=== PATIENT | female | born 1950 | race Native Hawaiian/Other Pacific Islander ===

== ENCOUNTER 2016-07-09 14:07 | Inpatient (IN) | payer OTHER ==
--- NOTE | 2016-07-09 14:49 | Emergency Department Report ---
Chief Complaint: Neuro Symptoms/Deficit Stated Complaint: SLURRED SPEECH Time Seen by Provider: 07/09/16 14:37 - HPI History of Present Illness: 65-year-old female presents today complaining of slurred speech and dizziness since 7 AM this morning. Positive for history of hypertension and has been out of her medication for over a year. - ROS Review of Systems: Per HPI - Exam Vital Signs: Vital Signs 07/09/16 14:26 Temperature 98.2 F Pulse Rate 102 H Respiratory 20 Rate Blood Pressure 249/120 O2 Sat by Pulse 100 Oximetry Physical Exam: General: 65-year-old female in mild to moderate distress. Well-developed, well- nourished. CV: Regular rate and rhythm. Lungs: Clear to auscultation bilaterally. Neuro: Alert and oriented 3, normal gait, positive for right-sided facial droop , fluid speech, EOMs intact, normal facial sensation, strength exam 5/5 upper and lower extremities, GCS equals 15, finger to nose normal, negative Romberg test. MSE screening note: Focused history and physical exam performed. Due to findings the following was ordered: ED Disposition for MSE Condition: Stable
[2016-07-09 15:15] LABS: Basophils % (Auto) 0.8 % (0.0-1.8); Eosinophils % (Auto) 1.1 % (0.0-4.3); Hematocrit 45.9 % (30.3-42.9); Hemoglobin 14.5 gm/dl (10.1-14.3); Mean Corpuscular HGB Conc 32 % (30-34); Mean Corpuscular Hemoglobin 26 pg (28-32); Mean Corpuscular Volume 83 fl (79-97); Platelet Count 278 K/mm3 (140-440); Red Blood Count 5.54 M/mm3 (3.65-5.03); Red Cell Distribution Width 15.8 % (13.2-15.2); White Blood Count 8.4 K/mm3 (4.5-11.0)
[2016-07-09 15:22] LABS: INR 1.01 (0.87-1.13)
[2016-07-09 15:23] LABS: Partial Thromboplastin Time 25.8 Sec. (24.2-36.6)
[2016-07-09 15:31] LABS: Creatine Kinase MB 1.9 ng/mL (0.0-4.0)
--- NOTE | 2016-07-09 15:31 | Cat Scan Report ---
CT HEAD WITHOUT CONTRAST: HISTORY: CVA. TECHNIQUE: Sequential CT images without contrast. FINDINGS: Images obtained show bilateral prominence of the sulci and ventricles. There are no abnormal intra- or extra-axial blood or fluid collections. There are no focal masses or evidence of mass effect. The estrada white matter differentiation appears within normal limits. Regions of periventricular decreased attenuation are consistent with microangiopathic ischemic disease. The posterior fossa structures including the fourth ventricle, cerebellum, and brainstem appear normal. IMPRESSION: Evidence of atrophy and microangiopathic ischemic disease. No acute intracranial process noted.
[2016-07-09 15:32] LABS: Anion Gap 21 mmol/L; BUN/Creatinine Ratio 13.75; Blood Urea Nitrogen 22 mg/dL (7-17); Calcium 9.1 mg/dL (8.4-10.2); Carbon Dioxide 24 mmol/L (22-30); Chloride 97.1 mmol/L (98-107); Creatine Kinase 86 units/L (30-135); Glucose 337 mg/dL (65-100); Potassium 4.1 mmol/L (3.6-5.0); Sodium 138 mmol/L (137-145)
[2016-07-09] MEDS ORDERED: CARDENE DRIP 40 MG/200 ML 40 MG/200 ML BAG ONE (16:13)
--- NOTE | 2016-07-09 16:19 | Emergency Department Report ---
HPI - General Chief Complaint: Neuro Symptoms/Deficit Time Seen by Provider: 07/09/16 14:37 - HPI HPI: Chief complaint: Slurred speech, headache HPI: Patient is a 65-year-old female with a history of CVA and hypertension states she's been out of her blood pressure medicine for 3 years and noticed this morning upon awakening she had left-sided pressure pain behind her left eye and slurred speech. Patient states both of her hands were cramping. Patient states she had a CVA about 5 years ago and was put on blood pressure medicine but never had it refilled when it ran out. Patient denies chest pain, fever shortness of breath, diaphoresis, pedal edema or abdominal pain. Patient states she has slight runny nose. Mode of arrival: [private car] Source: [Patient] Began: This morning upon awakening Duration: Continuous Context: See above Quality: Pressure Severity: Mild to moderate Improved with: Nothing Worsened with: Nothing Associated signs and symptoms: See above ED Past Medical Hx - Past Medical History Previous Medical History?: Yes Hx Hypertension: Yes Hx CVA: Yes - Surgical History Past Surgical History?: Yes Additional Surgical History: fibroid removal - Social History Smoking Status: Never Smoker Substance Use Type: Alcohol - Medications Home Medications: Home Medications Medication Instructions Recorded Confirmed Last Taken Type No Known Home Medications [No 07/09/16 07/09/16 Unknown History Reported Home Medications] ED Review of Systems ROS: Stated complaint: SLURRED SPEECH Other details as noted in HPI ROS Constitutional: No fever ENT: No uri symptoms Cardiovascular: No chest pain Respiratory: No sob or cough GI: No nausea vomiting or diarrhea : No dysuria frequency or urgency, Skin: No rash Neuro: See HPI Psych: No depression Derian/lymph: No edema Physical Exam - Physical Exam Vital Signs: Vital Signs 07/09/16 07/09/16 14:26 16:09 Temperature 98.2 F Pulse Rate 102 H 84 Respiratory 20 16 Rate Blood Pressure 249/120 Blood Pressure 260/140 [Left] O2 Sat by Pulse 100 100 Oximetry Physical Exam: GENERAL: The patient is well-developed well-nourished . HEENT: Normocephalic. Atraumatic. Extraocular motions are intact. Patient has moist mucous membranes. NECK: Supple. No meningitic signs are noted. There is no adenopathy noted. CHEST/LUNGS: Clear to auscultation. There is no respiratory distress noted. HEART/CARDIOVASCULAR: Regular. There is no tachycardia. There is no gallop rub or murmur. ABDOMEN: Abdomen is soft, nontender. Patient has normal bowel sounds. There is no abdominal distention. SKIN: There is no rash. There is no edema. There is no diaphoresis. NEURO: The patient is awake, alert, and oriented. The patient is cooperative. The patient has no focal neurologic deficits. No facial droop. The patient has normal speech. MUSCULOSKELETAL: There is no tenderness or deformity. There is no limitation range of motion. There is no evidence of acute injury. ED Course Vital Signs 07/09/16 07/09/16 14:26 16:09 Temperature 98.2 F Pulse Rate 102 H 84 Respiratory 20 16 Rate Blood Pressure 249/120 Blood Pressure 260/140 [Left] O2 Sat by Pulse 100 100 Oximetry - Reevaluation(s) Reevaluation #1: 07/09/16 16:20 Patient with a manual systolic blood pressure 260 and will be started on a Cardene drip. ED Medical Decision Making - Lab Data Result diagrams: 07/09/16 14:54 07/09/16 15:00 Laboratory Tests 07/09/16 07/09/16 15:00 16:15 POC Glucose 339 H Calcium 9.1 Total Creatine Kinase 86 CK-MB (CK-2) 1.9 CK-MB (CK-2) Rel Index 2.2 Troponin T < 0.010 - EKG Data -: EKG Interpreted by Me EKG shows normal: sinus rhythm (92) - EKG Data When compared to previous EKG there are: previous EKG unavailable Interpretation: nonspecific ST-T wave jakob, LVH, other (left axis deviation) - Radiology Data interpreted by me: Chest x-ray shows no acute process. Critical care time in (mins) excluding proc time.: 35 Critical care attestation.: If time is entered above; I have spent that time in minutes in the direct care of this critically ill patient, excluding procedure time. ED Disposition Clinical Impression: Hypertensive urgency, Renal insufficiency Disposition: OP ADMITTED IP TO THIS HOSP Is pt being admited?: Yes Does the pt Need Aspirin: Yes Condition: Serious Time of Disposition: 17:08 (admit to the hospitalist) - Assessment Assessment Interval: Baseline - Level of Consciousness 1a. Level of Consciousness: alert - LOC Questions 1b. LOC Questions: answers correctly - LOC Command 1c. LOC Commands: performs tasks correctly - Best Gaze 2. Best Gaze: normal - Visual 3. Visual: no visual loss - Facial Palsy 4. Facial Palsy: normal symmetrical movement - Motor Arm 5b. Motor Arm Right: no drift 5a. Motor Arm Left: no drift - Motor Leg 6a. Motor Leg Left: no drift 6b. Motor Leg Right: no drift - Limb Ataxia 7. Limb Ataxia: absent - Sensory 8. Sensory: normal - Best Language 9. Best Language: no aphasia - Dysarthria 10. Dysarthria: normal - Extinction and Inattention 11. Extinction/Inattention: no abnormality - Scoring Total Score: 0 Stroke Severity: No Stroke Symptoms
[2016-07-09] MEDS ORDERED: CARDENE DRIP 40 MG/200 ML 40 MG/200 ML BAG IV SCH (17:00)
--- NOTE | 2016-07-09 17:20 | XRay Report ---
AP CHEST: HISTORY: Hypertension AP view of the chest demonstrates a normal mediastinal and cardiac contour with clear lungs and normal bony and soft tissue structures. IMPRESSION: Unremarkable AP chest.
--- NOTE | 2016-07-09 17:40 | Admit Criteria Form ---
Admission Criteria Documentation: HYPERTENSION Clinical Indications for Admission to Inpatient Care ( Place "X" for any and all applicable criteria): Admission is indicated for ANY ONE of the following(1)(2)(3)(4): [ ]I. Hypertensive emergency, with evidence of acute and progressing target organ disease as indicated by ANY ONE of the following: [ ]a) Hypertensive encephalopathy (eg, confusion, altered mental status) [ ]b) Cerebral infarction [ ]c) Intracranial hemorrhage [ ]d) Myocardial ischemia or infarction [ ]e) Pulmonary edema [ ]f) Aortic dissection [ ]g) Seizure [ ]h) Acute renal insufficiency [ ]i) Papilledema [ ]j) Microangiopathic hemolytic anemia [ ]II. Adrenergic crisis (eg, severe hypertension due to pheochromocytoma crisis, cocaine or amphetamine intoxication, or clonidine withdrawal) [ X]III. Severe hypertension (SBP greater than 180 mmHg or DBP greater than 110 mmHg or greater than the 95th percentile for age, gender, and height in pediatric patients) that cannot be controlled (eg, to SBP less than 160 mmHg and DBP less than 100 mmHg in adults) by treatment with oral medication in emergency department or observation care Extended stay beyond goal length of stay may be needed for(11)(12)(13): [ ]a) Persistent hypertensive encephalopathy [ ]b) Continuation of pulmonary edema [ ]c) Recurring or persistent severe hypertension [ ]d) Target organ damage (eg, angina, stroke, aortic dissection) [ ]e) Associated renal insufficiency The original [employer] content created by [employer] has been revised. The portions of the content which have been revised are identified through the use of italic text or in bold, and [facility] has neither reviewed nor approved the modified material. All other unmodified content is copyright [employer] [facility]. Please see references footnoted in the original [employer] [employer] edition 2016 Admission Criteria Met: Yes
[2016-07-09] MEDS ORDERED: ASPIRIN PO ONE (18:06)
[2016-07-09] MEDS ORDERED: NORVASC PO ONE ×2 (21:30→21:32)
[2016-07-09] MEDS ORDERED: COZAAR PO ONE ×2 (21:31→21:34)
--- NOTE | 2016-07-09 22:11 | Event Note ---
Date: 07/09/16 See H/p in reports
[2016-07-09] MEDS ORDERED: MILK OF MAGNESIA PO PRN (22:12)
[2016-07-09] MEDS ORDERED: ZOFRAN IV PRN (22:12)
[2016-07-09] MEDS ORDERED: PERCOCET 5/325 PO PRN (22:12)
[2016-07-09] MEDS ORDERED: DILAUDID IV PRN (22:12)
[2016-07-09] MEDS ORDERED: AMBIEN PO PRN (22:12)
[2016-07-09] MEDS ORDERED: TYLENOL PO PRN (22:12)
[2016-07-09] MEDS ORDERED: DULCOLAX PR PRN (22:12)
[2016-07-09] MEDS ORDERED: APRESOLINE IV PRN (22:17)
[2016-07-09] MEDS ORDERED: NOVOLOG SUB-Q ONE (22:21)
[2016-07-09] MEDS ORDERED: NACL 0.45% 1000 ML 1,000 ML IV SCH (23:00)
[2016-07-09] MEDS: COREG PO SCH (23:00)
[2016-07-10 06:50] LABS: Basophils % (Auto) 0.7 % (0.0-1.8); Hematocrit 42.9 % (30.3-42.9); Hemoglobin 13.6 gm/dl (10.1-14.3); Mean Corpuscular HGB Conc 32 % (30-34); Mean Corpuscular Hemoglobin 26 pg (28-32); Mean Corpuscular Volume 83 fl (79-97); Platelet Count 269 K/mm3 (140-440); Red Blood Count 5.21 M/mm3 (3.65-5.03); White Blood Count 7.9 K/mm3 (4.5-11.0)
[2016-07-10 07:13] LABS: Albumin 3.2 g/dL (3.9-5); Albumin/Globulin Ratio 0.8 %; BUN/Creatinine Ratio 12.94; Bilirubin,Total 0.5 mg/dL (0.1-1.2); Calcium 8.6 mg/dL (8.4-10.2); Chloride 99.5 mmol/L (98-107); Potassium 3.8 mmol/L (3.6-5.0); Total Protein 7.2 g/dL (6.3-8.2)
[2016-07-10] MEDS ORDERED: AMARYL PO SCH (08:00)
[2016-07-10 09:02] VITALS: BP 179/84
[2016-07-10] MEDS: COZAAR PO SCH ×2 (09:11→12:28)
[2016-07-10] MEDS: COREG PO SCH (09:13)
[2016-07-10] MEDS ORDERED: LOVENOX SUB-Q SCH (10:00)
[2016-07-10] MEDS ORDERED: NORVASC PO SCH (10:00)
--- NOTE | 2016-07-10 10:41 | History and Physical Report ---
CHIEF COMPLAINT: Slurred speech and headache for one day. HISTORY OF PRESENT ILLNESS: A 65-year-old with history of CVA and hypertension. Has not been taking her blood pressure medicine for 3 years. On waking up, she noted that she has some slurred speech and left-sided headache and also pain behind her left eye. Apparently, both her hands were cramping but she did not have any difficulty walking. There was no urinary incontinence, no diplopia, no rectal incontinence, no nasal regurgitation or fluids. No facial droop. No weakness in all 4 extremities. Her basic problem was slurred speech which had resolved by the time she came to the ER but the headaches persist. PAST MEDICAL HISTORY: Significant for cerebrovascular accident, hypertension, noncompliance with medications. PAST SURGICAL HISTORY: Fibroid removal. SOCIAL HISTORY: Does not smoke. No alcohol, no recreational drugs. CURRENT MEDICATIONS: None. FAMILY HISTORY: Significant for hypertension. REVIEW OF SYSTEMS: CONSTITUTIONAL: No weight loss, no weight gain. No fever, no chills. HEENT: No facial droop, no diplopia, no nasal regurgitation of fluids, no sore throat. NECK: No neck stiffness. RESPIRATORY: No chest pain, no shortness of breath, no cough, no sputum. CARDIAC: No chest pain, no palpitations. No shortness of breath. GASTROINTESTINAL: No nausea, no vomiting, no diarrhea. GENITOURINARY: No dysuria, no flank pain. MUSCULOSKELETAL: No joint pains. CENTRAL NERVOUS SYSTEM: No syncope, no seizures. A 14-point review of system was done, essentially otherwise negative other than the headache. Slurred speech has resolved. PHYSICAL EXAMINATION: VITAL SIGNS: On examination, elderly female, cooperative during examination. Blood pressure was 249/120, temperature 98.2, pulse is 102, respirations 20. HEENT: Unremarkable. No papilledema. NECK: Supple, no lymphadenopathy, no thyromegaly. CHEST: Clear to auscultation and percussion. Good air entry. CARDIOVASCULAR: S1, S2 heard. No gallop, no murmur, no rub. Apical impulse in left fifth intercostal space and midclavicular line. ABDOMEN: Soft and benign. No hepatosplenomegaly. No guarding, no rigidity. Hernial orifices are normal. EXTREMITIES: Good pedal pulses. No pedal edema. CENTRAL NERVOUS SYSTEM: Alert and oriented x 4. Nonfocal exam. SKIN: Normal. LABORATORY DATA: White count is 8400, H and H is 14.5 and 45.9, platelet count is 278,000. BUN and creatinine is 28.2 and 1.6, glucose is 337. Cardiac enzymes are normal. ASSESSMENT AND PLAN: 1. Hypertensive emergency. The patient was given Cardene drip in the ER. The patient was also initiated also initiated on amlodipine 10 mg daily, Coreg 12.5 mg b.i.d. and losartan 100 mg daily. Also, hydralazine p.r.n. ER COURSE: In the ER, blood pressure came down to reasonable level with the Cardene drip and the Cardene drip was discontinued and switched over to p.o. medications and hydralazine on a p.r.n. basis. Blood pressure came down to 165/78 around midnight. EKG shows LVH pattern. Heart rate of 80 per minute. 2. New onset diabetes. The patient on Accu-Cheks a.c. and at bedtime and moderate dose sliding scale coverage. A1c to be checked. The patient initiated on glimepiride 2 mg daily. No metformin is added because of high creatinine of 1.6. The patient may be transitioned to outpatient on glipizide and maybe Januvia or Onglyza. 3. Acute renal failure, mild which we will correct with IV fluids. We will observe. 4. Deep venous thrombosis prophylaxis, Lovenox 40 mg subcutaneous daily. JOB# [id number] [facility]/ROSS
--- NOTE | 2016-07-10 10:55 | Discharge Summary ---
Providers - Providers Date of Admission: 07/09/16 22:12 Date of discharge: 07/10/16 Attending physician: MACHO MARTINEZ 07/09/16 22:23 Consult to Dietitian/Nutrition [CONS] Routine Physician Instructions: Reason For Exam: Reason for Consult: Nutrition Recommendations Reason for Consult: New onset DM Primary care physician: LICENSED AUDIOLOGIST Hospitalization Condition: Good Disposition: DISCHARGED TO HOME OR SELFCARE - Discharge Diagnoses (1) Hypertensive emergency Status: Acute Exam - Constitutional Vitals: Temp Pulse Resp BP Pulse Ox 98.1 F 94 H 20 179/84 98 07/10/16 09:01 07/10/16 09:11 07/10/16 09:01 07/10/16 09:11 07/10/16 09:01 Plan Activity: no restrictions Diet: low fat, low cholesterol, low salt Additional Instructions: 1.Follow up with PCP or [facility] in 1 week. 2.Follow up with Dr. Walters, nephrology in 1-2 weeks. 3.Repeat BMP in 1 week to be followed by PCP Follow up with: PRIMARY CARE, [Primary Care Provider] - 7 Days Prescriptions: amLODIPine [Norvasc] 10 mg PO QDAY #30 tablet Atenolol [Tenormin] 50 mg PO DAILY #30 tab glipiZIDE [Glucotrol] 5 mg PO BID #60 tablet Hydralazine HCl [Apresoline TAB] 50 mg PO BID #60 tab
[2016-07-10] MEDS ORDERED: NOVOLOG SUB-Q ONE ×2 (13:00)
[2016-07-10] MEDS ORDERED: LEVEMIR SUB-Q SCH (22:00)
== END 2016-07-10 16:04 | disposition home or self-care (01) | DRG 305 ==
LOC: ED 14:07 → 4A 22:12
PROVIDERS: ADMIT Internal Medicine; ATTEND Internal Medicine
DX: I16.1 Hypertensive emergency (principal); N17.9 Acute kidney failure, unspecified; I10 Essential (primary) hypertension; E11.9 Type 2 diabetes mellitus without complications; Z91.14 Patient's other noncompliance with medication regimen; Z86.73 Personal history of transient ischemic attack (TIA), and cerebral infarction without residual deficits; Z82.49 Family history of ischemic heart disease and other diseases of the circulatory system
CPT/HCPCS: 36415; 70450; 71010; 80048; 80053; 82550; 82553; 82962; 83036; 84484; 85025; 85610; 85670; 85730; 87086; 93005; 93010; J0360; J1650; J1815; J1818